=== PATIENT | male | born 1950 | race Caucasian/White ===

== ENCOUNTER → 2019-03-03 | Outpatient (RCR) | payer MEDICARE, BC ==
--- NOTE | 2019-02-25 10:16 | CARECAPL ---
Assessment Account #s: Initial Assessment General Diagnoses: CABG (mi) Date of event: December 17, 2018 Physician: Milton Medina Allergies: Coded Allergies: Librium (Verified Allergy, 02/25/19) Pork (Verified Allergy, 02/25/19) Rocephin (Verified Allergy, 02/25/19) Shellfish Derived (Verified Allergy, 02/25/19) Uncoded Allergies: artificial sweetners (Allergy, Unknown, 02/25/19) baclafen (Allergy, 02/25/19) environmental (Allergy, 02/25/19) hemmroid supp (Allergy, 02/25/19) Date Entered Program: Feb 25, 2019 Risk strat for cardiac event: Low Exercise Date: Feb 25, 2019 Assessment: Initial Assessment Exercise Prescription Plan to educate about cardiac disease and risk factors and to provide a monitored e xercise program to build strength and endurance Modalities initiated: Treadmill (will add), Cardio-Strider (will add), Nustep (will add), Arm Aerometer (will add), Dumbells (will add), Recumbent Bike (will add) Frequency: 2-3 Duration (Minutes) 30-60 minutes total exercise a day. 8-15 work intervals in minutes. as needed - rest intervals in minutes. Functional Capacity Goal Sustained Metabolic Equivalent of a task (MET) goal of 3-4.0 for 15-20 minutes. Intensity: 3-Moderate Progression (METS) Increase by: .5 METS every: 2-3 sessions Angina with ex: No Target Heart Rate 100-123 Resistance Training: Yes Weight (pounds): 2 Reps: 6-8 Hypertension: Yes Hypertension controlled with: Diet Resting 140/96 Meds see below Medications Scheduled Ascorbic Acid (Vitamin C), 1,000 MG PO DAILY, (Reported) Aspirin (Aspir 81), 81 MG PO DAILY, (Reported) Atorvastatin Calcium (Atorvastatin Calcium), 80 MG PO DAILY, (Reported) Cetirizine HCl (Allergy Relief), 10 MG PO DAILY, (Reported) Cholecalciferol (Vitamin D3) (Vitamin D3), 2,000 UNIT PO DAILY, (Reported) Clopidogrel Bisulfate (Plavix), 75 MG PO DAILY, (Reported) Diphenhydramine HCl (Benadryl), 25 MG PO QHS, (Reported) Gabapentin (Gabapentin), 300 MG PO BID, (Reported) Olopatadine HCl (Patanase), 1 SPRAY NARES DAILY, (Reported) Omeprazole Magnesium (Prilosec Otc), 20 MG PO QHS, (Reported) Triamcinolone Acetonide (Nasacort), 1 SPRAY NARES QHS, (Reported) Target Goals Individual exercise Rx (1) BP 140/90 or 130/80 if DM or CKD (1) Aerobic active 30+min 5 days per week (1) Nutrition Date: Feb 25, 2019 Assessment: Initial Assessment Lipids Total Cholesterol (180), High Density Lipids (HDL) (68), Low Density Lipids (LDL) (93), Triglycerides (93), Lipid med/supplement Lipid- med/supplement Atorvastatin Diabetes Diabetes: No Weight Management Weight (lbs): 140.8 Height (inches): 62 Waist Circumference (Inches): 36.5 BMI: 25.6 Weight goal: 138 Special Diet: low salt, mediteranean diet, low-fat Vitamin/Supplements: Vitamin C, Vitamin D Alcohol: none Diet Access Tool: Rate your plate Score: 70 Intervention Nurse/patient discussion: Yes Dietary Goals to continue to make good choices and small portions Diet Class: Yes (will see this program) Referral to Diabetes education: No Referral to lipid clinic: No Referral to weight mangement p: No Education Eating Healthy Target goal LDL-C<100 if triglycerides are >200 Non-HDL-C should be <130 (1) LDL-C<70 for high risk patients (4) HbA1c<7% (1) BMI<25 Waist cir<40in M/<35in F (1) Education Date: Feb 25, 2019 Assessment: Initial Assessment Learning Barriers: ready Knowledge Test Score: 9 Family Support: Yes Tobacco use: No Tobacco Use Smokeless tobacco: No Intervention Referral to smoking cessation: No Individual education and couns: No Tobacco Adjunct: No Education class schedule given: Yes Attended education classes: Yes (will received this program) Target Goals Complete cessation of tobacco use (1). Psychosocial Date: Feb 25, 2019 Assessment: Initial Assessment Psych Test (Initial/Discharge) Tool Used: CESD Score: 1 Intervention Physician Consult: No Physician Referral: No Target Goal Assess presence or absence of depression using a valid screening tool (1). Maximize coping skills (2). Positive support system (2). Patient/Program Goal Preventative Medication: Yes Aspirin, Yes Clopidogrel, Yes JOSE J Inhibitor, Yes Statin/OTR lipid Lowering Fall Risk Assess: No Provider Assessment Session Number: 1 Provider Assessment: Proceed with rehab Leslie Liang RN Feb 25, 2019 10:16
[~2019-03-03] MED LIST: ASPI81TA85 PO; ATOR80TA59 PO; BENA25CA4 PO; CETI10CA13 PO; D32000CA PO; GABA-843 PO; NASA1SPR NARES; PATA0.6S NARES; PLAV1TAB2 PO; PRIL20TA2 PO; VITA500T PO
== END ==
LOC: M CR 02-25 08:23
PROVIDERS: ATTEND Internal Medicine Cardiovascular Disease
DX: Z95.1 Presence of aortocoronary bypass graft (principal)

== ENCOUNTER 2019-04-02 11:18 | Outpatient (RCR) | payer MEDICARE, BC ==
--- NOTE | 2019-03-17 14:23 | CARECAPL ---
Assessment Account #s: Re-Assessment I General Diagnoses: CABG, NSTEMI Date of event: December 17, 2018 Physician: Milton Medina Allergies: Coded Allergies: Pork (Verified Allergy, Unknown, 02/25/19) ceftriaxone (Verified Allergy, Unknown, 02/25/19) chlordiazepoxide (Verified Allergy, Unknown, 02/25/19) shellfish derived (Verified Allergy, Unknown, 02/25/19) Uncoded Allergies: artificial sweetners (Allergy, Unknown, 02/25/19) baclafen (Allergy, Unknown, 02/25/19) environmental (Allergy, Unknown, 02/25/19) hemmroid supp (Allergy, Unknown, 02/25/19) Date Entered Program: Feb 25, 2019 Risk strat for cardiac event: Low Exercise Assessment: Re-Assessment I Exercise Prescription Modalities initiated: Treadmill (R2 3.2/2.0 mts 4.33 rpe 2.5 15 minutes), Nustep ( mts 7.0 rpe 3), Arm Aerometer (3.5 mts 4.5 rpe3), Dumbells, Recumbent Bike (R2 mts 3.2 rpe 3 10 minutes) Frequency: 2-3 Duration (Minutes) minutes total exercise a day. work intervals in minutes. rest intervals in minutes. Functional Capacity Goal Sustained Metabolic Equivalent of a task (MET) goal of 5.5-6.5 for 15-20 minutes. Progression (METS) Increase by: METS every: sessions Angina with ex: No Resistance Training: Yes Weight (pounds): 6 Reps: 8-12 Medications Scheduled Ascorbic Acid (Vitamin C), 1,000 MG PO DAILY, (Reported) Aspirin (Aspir 81), 81 MG PO DAILY, (Reported) Atorvastatin Calcium (Atorvastatin Calcium), 80 MG PO DAILY, (Reported) Cetirizine HCl (Allergy Relief), 10 MG PO DAILY, (Reported) Cholecalciferol (Vitamin D3) (Vitamin D3), 2,000 UNIT PO DAILY, (Reported) Clopidogrel Bisulfate (Plavix), 75 MG PO DAILY, (Reported) Diphenhydramine HCl (Benadryl), 25 MG PO QHS, (Reported) Gabapentin (Gabapentin), 300 MG PO BID, (Reported) Olopatadine HCl (Patanase), 1 SPRAY NARES DAILY, (Reported) Omeprazole Magnesium (Prilosec Otc), 20 MG PO QHS, (Reported) Triamcinolone Acetonide (Nasacort), 1 SPRAY NARES QHS, (Reported) Current BP 110/78 Med Change: No Intervention Education: Low NA diet (total Na for a day, reading labels, ), BP medication (importance of taking bp medication, side effects), RPE Scale (how to rate effort ), Equipment orientation (machine operation), warm up/cool down (importance to prevent injury), Understand BP (baseline and normals) Education Goals Met: No (progressing toward goals) Target Goals Individual exercise Rx (1) BP 140/90 or 130/80 if DM or CKD (1) Aerobic active 30+min 5 days per week (1) Nutrition Date: Mar 17, 2019 Assessment: Re-Assessment I Current Weight (pounds): 140.8 Intervention Diet Class: No (will see this program) Education Goals Met: No (progressing toward goals) Target goal LDL-C<100 if triglycerides are >200 Non-HDL-C should be <130 (1) LDL-C<70 for high risk patients (4) HbA1c<7% (1) BMI<25 Waist cir<40in M/<35in F (1) Education Date: Mar 17, 2019 Assessment: Re-Assessment I Intervention Attended education classes: Yes Education: CAD, Risk factors (risk factors reviewed, wt, diet), med compliance (understanding of medication compliants), 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 Psychosocial Date: Mar 17, 2019 Assessment: Re-Assessment I Education Education: Coping Techniques (making self a priority), S/S depression (in sleeping, no ambition, loss of interest.), Relaxation Techniques (deep breathing, doing things you like, ) Target Goal Assess presence or absence of depression using a valid screening tool (1). Maximize coping skills (2). Positive support system (2). Provider Assessment Session Number: 8 Provider Assessment: No changes Leslie Liang RN Mar 17, 2019 14:22
== END 2019-04-03 ==
LOC: M CR 11:18
PROVIDERS: ATTEND Internal Medicine Cardiovascular Disease
DX: Z95.1 Presence of aortocoronary bypass graft (principal)

== ENCOUNTER 2019-04-12 10:34 | Outpatient (RCR) | payer MEDICARE, BC ==
--- NOTE | 2019-04-08 09:34 | CARECAPL ---
Assessment Account #s: Re-Assessment II General Diagnoses: CABG, NSTEMI Date of event: December 17, 2018 Physician: Milton Medina Allergies: Coded Allergies: Pork (Verified Allergy, Unknown, 02/25/19) ceftriaxone (Verified Allergy, Unknown, 02/25/19) chlordiazepoxide (Verified Allergy, Unknown, 02/25/19) shellfish derived (Verified Allergy, Unknown, 02/25/19) Uncoded Allergies: artificial sweetners (Allergy, Unknown, 02/25/19) baclafen (Allergy, Unknown, 02/25/19) environmental (Allergy, Unknown, 02/25/19) hemmroid supp (Allergy, Unknown, 02/25/19) Date Entered Program: Feb 25, 2019 Risk strat for cardiac event: Low Exercise Date: Apr 07, 2019 Assessment: Re-Assessment II Stages of change: Preperation Exercise Prescription Plan educate on cardiovascular disease and increase endurance, flexibility and strength through monitored exercise Modalities initiated: Treadmill (speed 3.6 incline 3.0 for 15 minutes mets 5.25 RPE 3), Nustep (resistance 6 for 15 minutes mets 7.0 RPE 3), Arm Aerometer (resistance 3.5 for 10 minutes mets 5.0 RPE 3), Dumbells (8lbs 2 sets rep 15 RPE 2.5), Elliptimill (resistance 2 for 8 minutes mets 3.0 RPE 3) Frequency: 2-3 Duration (Minutes) 30 - 60 minutes total exercise a day. 15 - 20 work intervals in minutes. PRN rest intervals in minutes. Functional Capacity Goal Sustained Metabolic Equivalent of a task (MET) goal of 6.25-7.0 for 15-20 minutes. Intensity: 3-Moderate Progression (METS) Increase by: 0.5 METS every: 3-5 sessions Angina with ex: No Target Heart Rate Rest + 40-50 per beta radha therapy Resistance Training: Yes Weight (pounds): 8 Reps: 12-15 Hypertension: No Hypertension controlled with: Medication Resting 126/78 Peak Exercise BP 146/84 Meds bisoprolol Medications Scheduled Ascorbic Acid (Vitamin C), 1,000 MG PO DAILY, (Reported) Aspirin (Aspir 81), 81 MG PO DAILY, (Reported) Atorvastatin Calcium (Atorvastatin Calcium), 80 MG PO DAILY, (Reported) Cetirizine HCl (Allergy Relief), 10 MG PO DAILY, (Reported) Cholecalciferol (Vitamin D3) (Vitamin D3), 2,000 UNIT PO DAILY, (Reported) Clopidogrel Bisulfate (Plavix), 75 MG PO DAILY, (Reported) Diphenhydramine HCl (Benadryl), 25 MG PO QHS, (Reported) Gabapentin (Gabapentin), 300 MG PO BID, (Reported) Olopatadine HCl (Patanase), 1 SPRAY NARES DAILY, (Reported) Omeprazole Magnesium (Prilosec Otc), 20 MG PO QHS, (Reported) Triamcinolone Acetonide (Nasacort), 1 SPRAY NARES QHS, (Reported) Current BP 126/78 Med Change: Yes (bisoprolol) Education Goals Met: Yes (continue education throughout program) Target Goals Individual exercise Rx (1) BP 140/90 or 130/80 if DM or CKD (1) Aerobic active 30+min 5 days per week (1) Nutrition Date: Apr 08, 2019 Assessment: Re-Assessment II Stages of change: Preperation Med Change: No Diabetes Diabetes: No Medication Change: No Blood sugar in range: No Current Weight (pounds): 140 Intervention Supervisor Beet End Consult: No Nurse/patient discussion: Yes Diet Class: Yes Education Goals Met: Yes (will reinforce education goals throughout attendance) Target goal LDL-C<100 if triglycerides are >200 Non-HDL-C should be <130 (1) LDL-C<70 for high risk patients (4) HbA1c<7% (1) BMI<25 Waist cir<40in M/<35in F (1) Education Date: Apr 08, 2019 Assessment: Re-Assessment II Stages of change: Preperation Education Goals Met: Yes (will reinforce educate goals through attendance to cardiac rehab.) Target Goals Complete cessation of tobacco use (1). Psychosocial Date: Apr 08, 2019 Assessment: Re-Assessment II Stages of change: Preperation Med Change: No Stress Management Class: Yes Uses Stress Management Skills: Yes Education Goals Met: Yes (will reinforce education throughout attendance to cardiac rehab.) Target Goal Assess presence or absence of depression using a valid screening tool (1). Maximize coping skills (2). Positive support system (2). Patient/Program Goal Preventative Medication: Yes Aspirin, Yes Clopidogrel, Yes Beta blockade, Yes Statin/OTR lipid Lowering Fall Risk Assess: Yes (no fall risk) Provider Assessment Session Number: 15 Provider Assessment: Proceed with rehab (progressing ) Jessenia Rascon RN Apr 08, 2019 09:34
--- NOTE | 2019-04-12 11:03 | CARECAPL ---
Assessment Account #s: Discharge General Diagnoses: CABG, STEMI Date of event: December 17, 2018 Physician: Milton Medina Allergies: Coded Allergies: Pork (Verified Allergy, Unknown, 02/25/19) ceftriaxone (Verified Allergy, Unknown, 02/25/19) chlordiazepoxide (Verified Allergy, Unknown, 02/25/19) shellfish derived (Verified Allergy, Unknown, 02/25/19) Uncoded Allergies: artificial sweetners (Allergy, Unknown, 02/25/19) baclafen (Allergy, Unknown, 02/25/19) environmental (Allergy, Unknown, 02/25/19) hemmroid supp (Allergy, Unknown, 02/25/19) Date Entered Program: Feb 25, 2019 Risk strat for cardiac event: Low Exercise Date: Apr 12, 2019 Assessment: Followup/Discharge Stages of change: maintenance Exercise Prescription Modalities initiated: Treadmill ( 3.6/3.0 mts 5.25 rpe 3 15 minutes), Nustep (L6 mts s7.0 rpe 3), Arm Aerometer (3.5, mts 4.5 rpe 3 10 minutes), Elliptimill (mts 3.0 rpe 3 8 minutes) Frequency: 3 Duration (Minutes) 30 - 60 minutes total exercise a day. 15 - 20 work intervals in minutes. PRN rest intervals in minutes. Functional Capacity Goal Sustained Metabolic Equivalent of a task (MET) goal of for minutes. Intensity: 3-Moderate Progression (METS) Increase by: METS every: sessions Resistance Training: Yes Weight (pounds): 8 Reps: 8-12 Hypertension: Yes Hypertension controlled with: Diet Resting 138/82 Peak Exercise BP 180/100 Meds see below Medications Scheduled Ascorbic Acid (Vitamin C), 1,000 MG PO DAILY, (Reported) Aspirin (Aspir 81), 81 MG PO DAILY, (Reported) Atorvastatin Calcium (Atorvastatin Calcium), 80 MG PO DAILY, (Reported) Cetirizine HCl (Allergy Relief), 10 MG PO DAILY, (Reported) Cholecalciferol (Vitamin D3) (Vitamin D3), 2,000 UNIT PO DAILY, (Reported) Clopidogrel Bisulfate (Plavix), 75 MG PO DAILY, (Reported) Diphenhydramine HCl (Benadryl), 25 MG PO QHS, (Reported) Gabapentin (Gabapentin), 300 MG PO BID, (Reported) Olopatadine HCl (Patanase), 1 SPRAY NARES DAILY, (Reported) Omeprazole Magnesium (Prilosec Otc), 20 MG PO QHS, (Reported) Triamcinolone Acetonide (Nasacort), 1 SPRAY NARES QHS, (Reported) Intervention Home exercise: Duration (see prior ITP) Education Goals Met: Yes (will continue program in [place]) Target Goals Individual exercise Rx (1) BP 140/90 or 130/80 if DM or CKD (1) Aerobic active 30+min 5 days per week (1) Nutrition Date: Apr 12, 2019 Assessment: Followup/Discharge Stages of change: maintenance Med Change: No Weight Management Weight (lbs): 140.2 Height (inches): 62 Waist Circumference (Inches): 35 BMI: 25.6 Weight goal: 140 Diet Access Tool: Rate your plate Score: 71 Education Goals Met: Yes (see prior ITP for education) Target goal LDL-C<100 if triglycerides are >200 Non-HDL-C should be <130 (1) LDL-C<70 for high risk patients (4) HbA1c<7% (1) BMI<25 Waist cir<40in M/<35in F (1) Education Date: Apr 12, 2019 Assessment: Followup/Discharge Knowledge Test Score: 10 Stages of change: maintenance Education Goals Met: Yes (see prior ITP for education detail. will continue program in [place]) Target Goals Complete cessation of tobacco use (1). Psychosocial Date: Apr 12, 2019 Assessment: Followup/Discharge Psych Test (Initial/Discharge) Tool Used: Other (depression screening tool) Score: 0 Stages of change: maintenance Stress Management Class: Yes Uses Stress Management Skills: Yes Education Goals Met: Yes Target Goal Assess presence or absence of depression using a valid screening tool (1). Maximize coping skills (2). Positive support system (2). Fall Risk Assess: No Provider Assessment Session Number: 16 Provider Assessment: No changes Leslie Liang RN Apr 12, 2019 11:03
== END 2019-05-03 ==
LOC: M CR 10:34
PROVIDERS: ATTEND Internal Medicine Cardiovascular Disease
DX: Z95.1 Presence of aortocoronary bypass graft (principal)

== ENCOUNTER → 2021-03-19 | Outpatient (CLI) | payer MEDICARE, BC ==
[~2021-03-19] MED LIST changes: -ASPI81TA85 PO; +ASPI81TA86 PO; +GABA-282 PO; -GABA-843 PO; +VITA-243 PO; -VITA500T PO
--- NOTE | 2021-03-20 15:38 | SLEEPHOME ---
DATE: 03/19/2021 ORDERED BY: Cleo Martin Diagnostic home sleep testing was performed due to concern for the obstructive sleep apnea syndrome. For testing, a nocturnal T3 respiratory monitoring device was used. Continuous record was made of pulse, oxygen saturation, air flow, chest and abdominal strain, and body position. There was 9 hours and 59 minutes of data reviewed. There was 8 hours and 40 minutes marked as time in bed. During the interval marked time in bed, there were 263 respiratory events identified of 10 seconds in duration or greater for a respiratory event index of 30.3. The events are primarily obstructive; however, 175 mixed and central apneas were also seen. The Baseline pulse rate was 57. Pulse rate ranged 50-81. Baseline saturation 93%. Saturations fell to 77%. Testing was performed in both the supine and nonsupine positions. IMPRESSION: Abnormal home sleep testing with repetitive respiratory events and oxygen desaturations to 77% with a respiratory event index of 30.3 is consistent with the obstructive sleep apnea syndrome. RECOMMENDATION: The patient should be encouraged to undergo formal sleep evaluation. Given the significant presence of central and mixed apneas, the patient may well have complex disease and require bilevel titration.
== END ==
LOC: M SLEEP HO 10:19
PROVIDERS: ATTEND Physician Assistant
DX: G47.9 Sleep disorder, unspecified (principal)

== ENCOUNTER → 2022-02-26 | Outpatient (CLI) | payer MEDICARE, BC ==
[2022-02-26 07:47] LABS: BASO % 0.2 % (0.0-1.0); EOS # 0.1 10^3/uL (0.0-0.5); EOS % 2.2 % (0.0-3.0); HEMATOCRIT 47.3 % (42.0-52.0); HEMOGLOBIN 15.4 g/dl (13.5-17.5); LYMPH # 1.1 10^3/uL (1.5-5.0); LYMPH % 21.8 % (24.0-44.0); MEAN CORPUSCULAR HGB CONC 32.6 g/dl (32.0-36.5); MONO # 0.4 10^3/uL (0.0-0.8); MONO % 7.4 % (2.0-8.0); NEUTROPHILS # 3.4 10^3/uL (1.5-8.5); PLATELET COUNT, AUTOMATED 208 10^3/uL (150-450); RED BLOOD COUNT 5.14 10^6/uL (4.30-6.10)
[2022-02-26 08:24] LABS: BLOOD UREA NITROGEN 24 MG/DL (7-18); CALCIUM LEVEL 9.4 MG/DL (8.8-10.2); CARBON DIOXIDE LEVEL 28 mmol/L (20-29); CHLORIDE LEVEL 110 MEQ/L (98-107); CREATININE FOR GFR 0.85 MG/DL (0.70-1.30); GLOMERULAR FILTRATION RATE > 60.0 (>49); GLUCOSE, FASTING 96 MG/DL (70-100); POTASSIUM SERUM 4.3 MEQ/L (3.5-5.1); SODIUM LEVEL 144 MEQ/L (136-145)
[2022-02-26 08:25] LABS: CHOLESTEROL LEVEL 113 MG/DL (<200); CHOLESTEROL RISK RATIO 1.852 (<5); HDL CHOLESTEROL 61 MG/DL (>40); LDL CHOLESTEROL 39.2 MG/DL (<100); NON-HDL-C 52 MG/DL; TRIGLYCERIDES LEVEL 64 MG/DL (<150)
== END ==
LOC: M LAB 07:09
PROVIDERS: ATTEND Physician Assistant
DX: I25.10 Atherosclerotic heart disease of native coronary artery without angina pectoris (principal)

== ENCOUNTER → 2024-03-10 | Outpatient (CLI) | payer MEDICARE, BC ==
[~2024-03-10] MED LIST changes: +CLOP75TA99 PO; -PLAV1TAB2 PO
== END ==
LOC: M PLAIMG 12:18
PROVIDERS: ATTEND Physician Assistant Medical
DX: H53.9 Unspecified visual disturbance (principal); H53.2 Diplopia; Z80.8 Family history of malignant neoplasm of other organs or systems